=== PATIENT | female | born 1950 | race Caucasian/White ===

== ENCOUNTER 2023-07-23 10:11 | Outpatient (OUT) | payer MEDICARE, SELFPAY ==
--- NOTE | 2023-07-23 10:22 | US_ITS ---
[address] [address] Patient Name: CHARLIE JACKSON MRN: [id number] date: 1950 Sex: F Assigned Patient Location: Current Patient Location: US Accession/Order Number: [id number] Exam Date: 07/23/2023 10:23 Report Date: 07/23/2023 14:10 At the request of: ANSELMO HIGHTOWER Procedure: US carotid duplex BI EXAMINATION: US carotid duplex BI HISTORY: syncope and collapse R55 COMPARISON: No relevant comparison available. TECHNIQUE: Duplex Doppler ultrasound analysis of carotid and vertebral arteries. . Bilateral carotid arterial duplex examination was performed using B-mode, color flow and spectral analysis. Carotid stenosis is reported according to validated velocity parameters, similar to NASCET criteria. FINDINGS: RIGHT CAROTID ARTERY: Mild atherosclerotic disease without significant stenosis. RIGHT VERTEBRAL: Antegrade flow. Subclavian: PSV: 143.6 cm/s EDV: 8.2 cm/s CCA: Prox: PSV: 80.1 cm/s EDV: 12.0 cm/s Mid: PSV: 72.4 cm/s EDV: 15.3 cm/s Distal: PSV: 65.8 cm/s EDV: 15.3 cm/s BULB: PSV: 49.4 cm/s EDV: 9.8 cm/s ICA: Prox: PSV: 72.4 cm/s EDV: 15.3 cm/s Mid: PSV: 102.1 cm/s EDV: 28.3 cm/s Distal: PSV: 129.8 cm/s EDV: 32.3 cm/s ECA: PSV: 80.6 cm/s EDV: 0.0 cm/s VERTEBRAL: PSV: 54.7 cm/s EDV: 14.4 cm/s ICA/CCA ratio: PSV: 2.0 EDV: 2.1 LEFT CAROTID ARTERY: Mild atherosclerotic disease without significant stenosis. LEFT VERTEBRAL: Antegrade flow. Subclavian: PSV: 124.0 cm/s EDV: 0.0 cm/s CCA: Prox: PSV: 115.9 cm/s EDV: 20.7 cm/s Mid: PSV: 78.7 cm/s EDV: 9.1 cm/s Distal: PSV: 78.7 cm/s EDV: 13.7 cm/s BULB: PSV: 78.8 cm/s EDV: 15.4 cm/s ICA: Prox: PSV: 72.3 cm/s EDV: 20.6 cm/s Mid: PSV: 94.4 cm/s EDV: 21.5 cm/s Distal: PSV: 116.1 cm/s EDV: 25.4 cm/s ECA: PSV: 100.3 cm/s EDV: 7.7 cm/s VERTEBRAL: PSV: 88.5 cm/s EDV: 5.7 cm/s ICA/CCA ratio: PSV: 1.5 EDV: 1.9 US/US carotid duplex BI IMPRESSION: 1. Mild atherosclerotic disease bilaterally. 2. 0-49% flow stenosis within the right and left carotid arteries. Spectral Doppler US Thresholds Stenosis (%) PSV (cm/sec) VICA/VCCA 0-49 <150 <2.5 50-69 150-225 2.5-4.0 >70 >225 >4.0 Electronically authenticated by: YESSICA FREDERICK Date: 07/23/2023 14:10
== END 2023-07-23 10:12 | disposition home or self-care (01) ==
PROVIDERS: PCP Family Medicine; Visit Provider Family Medicine
DX: R55 Syncope and collapse (principal)
CPT/HCPCS: 93880

== ENCOUNTER 2023-08-18 09:24 | Outpatient (OUT) | payer MEDICARE, SELFPAY ==
--- OUTSIDE RECORDS SUMMARY | 2023-08-18 09:38 | XMS_ITS | CCD ---
Author Organization [facility] Care Team Providers Care Casting Cleaner Name Role Phone DR ANSELMO HIGHTOWER Admitting Unavailable DR ANSELMO HIGHTOWER Attending Unavailable DR ANSELMO HIGHTOWER Primary Care Unavailable DR ANSELMO HIGHTOWER Admitting Unavailable DR ANSELMO HIGHTOWER Attending Unavailable DR ANSELMO HIGHTOWER Primary Care Unavailable DR ANSELMO HIGHTOWER Consulting Unavailable DR AMADOU ALVA Consulting Unavailable Problems Problem Classification Problem Date Documented Date Episodic/Chronic Diabetes mellitus without complication (1 source) Type 2 diabetes mellitus without complications; Translations: [TYPE 2 DM WITHOUT COMPLICATIONS] Onset: 2 Chronic Diabetes mellitus without complication (1 source) Other abnormal glucose; Translations: [OTHER ABNORMAL GLUCOSE] Onset: 2 Episodic Disorders of lipid metabolism (4 sources) Pure hypercholesterolemia, unspecified; Translations: [PURE HYPERCHOLESTEROLEMIA UNSPEC] Onset: 2 Chronic Malaise and fatigue (1 source) Other fatigue; Translations: [OTHER FATIGUE] Onset: 2 Episodic Nutritional deficiencies (1 source) Vitamin D deficiency, unspecified; Translations: [VITAMIN D DEFICIENCY UNSPECIFIED] Onset: 2 Chronic Other screening for suspected conditions (not mental disorders or infectious disease) (2 sources) Encounter for screening for malignant neoplasm of rectum; Translations: [Encounter for screening mammogram for malignant neoplasm of breast] Onset: 2 Episodic Results Test Name Value Interpretation Reference Range Facil ity CBC AUTO DIFFon 04-29-2022 BASO # 0.0 103/ul Normal 0.0-0.1 [facility] Comment on above: Performed By: #### C BC #### [facility] [address] [address] [address] Ally Maria Basophils/100 WBC (Bld) 0.9 % Normal 0.2-2.0 [facility] Comment on above: Performed By: #### C BC #### [facility] [address] [address] [address] Ally Maria EO # 0.3 103/ul Normal 0.0-0.7 [facility] Comment on above: Performed By: #### C BC #### [facility] [address] [place] [address] Dr. Ally Maria Eosinophils/100 WBC (Bld) 5.8 % Normal 0.9-7.0 [facility] Comment on above: Performed By: #### C BC #### [facility] [address] [place] [address] Dr. Ally Maria Erythrocyte distribution width (RBC) [Ratio] 13.3 % Normal 11.0-15.0 [facility] Comment on above: Performed By: #### C BC #### [facility] [address] [place] [address] Dr. Ally Maria Hematocrit (Bld) [Volume fraction] 36.5 % Normal 36.0-48.0 [facility] Comment on above: Performed By: #### C BC #### [facility] [address] [place] [address] Dr. Ally Maria Hemoglobin (Bld) [Mass/Vol] 11.9 g/dL Critically low 12.0-16.0 [facility] Comment on above: Performed By: #### C BC #### [facility] [address] [place] [address] Dr. Ally Maria IG # 0.04 10e3/ul Critically high 0.00-0.03 [facility] Comment on above: Performed By: #### C BC #### [facility] [address] [place] [address] Dr. Ally Maria IG % 0.9 % Critically high 0.0-0.5 [facility] Comment on above: Performed By: #### C BC #### [facility] [address] [place] [address] Dr. Ally Maria LYMPH # 1.2 103/ul Normal 1.2-3.8 [facility] Comment on above: Performed By: #### C BC #### [facility] [address] [address] [address] Ally Maria Lymphocytes/100 WBC (Bld) 27.3 % Normal 20.5-60.0 [facility] Comment on above: Performed By: #### C BC #### [facility] [address] [place] [address] Dr. Ally Maria MANUAL DIFF REQ NO Normal [facility] Comment on above: Performed By: #### C BC #### [facility] [address] [address] [address] Ally Maria MCH (RBC) [Entitic mass] 26.6 pg Critically low 26.7-34.0 [facility] Comment on above: Performed By: #### C BC #### [facility] [address] [place] [address] Dr. Ally Maria MCHC (RBC) [Mass/Vol] 32.6 g/dL Normal 29.9-35.2 [facility] Comment on above: Performed By: #### C BC #### [facility] [address] [place] [address] Dr. Ally Maria MCV (RBC) [Entitic vol] 81.7 fL Normal 81.0-99.0 [facility] Comment on above: Performed By: #### C BC #### [facility] [address] [place] [address] Dr. Ally Maria MONO # 0.5 103/ul Normal 0.3-0.8 [facility] Comment on above: Performed By: #### C BC #### [facility] [address] [place] [address] Dr. Ally Maria Monocytes/100 WBC (Bld) 10.9 % Normal 1.7-12.0 [facility] Comment on above: Performed By: #### C BC #### [facility] [address] [place] [address] Dr. Ally Maria NEUT # 2.3 103/ul Normal 1.4-6.5 [facility] Comment on above: Performed By: #### C BC #### [facility] [address] [place] [address] Dr. Ally Maria Neutrophils/100 WBC (Bld) 54.2 % Normal 43.0-75.0 [facility] Comment on above: Performed By: #### C BC #### [facility] [address] [place] [address] Dr. Ally Maria Platelet mean volume (Bld) [Entitic vol] 9.0 fL Critically low 9.5-13.5 [facility] Comment on above: Performed By: #### C BC #### [facility] [address] [place] [address] Dr. Ally Maria PLT 210 103/ul Normal 150-450 [facility] Comment on above: Performed By: #### C BC #### [facility] [address] [place] [address] Dr. Ally Maria RBC 4.47 106/ul Normal 4.20-5.40 [facility] Comment on above: Performed By: #### C BC #### [facility] [address] [place] [address] Dr. Ally Maria WBC 4.3 103/ul Normal 4.0-11.0 [facility] Comment on above: Performed By: #### C BC #### [facility] [address] [place] [address] Dr. Ally Maria FREE T3on 04-29-2022 FREE T3 2.74 pg/mlL Normal 2.18-3.98 [facility] Comment on above: Performed By: #### C MP, T4, LIPID, FT3, TSH #### [facility] [address] [place] [address] Dr. Ally Maria GLYCOHEMOGLOBIN A1Con 2021 ADA RECOMMENDATION SEE BELOW Normal [facility] Comment on above: Result Comment: ADA RECOMMENDED LIMIT 4.0 - 6.0 ADA THERAPEUTIC TARGET < 7.0 ACTION SUGGESTED > 7.0 Performed By: #### A 1C #### [facility] [address] [place] [address] Dr. Ally Maria Glucose [Mass/Vol] 140 mg/dL Normal [facility] Comment on above: Performed By: #### A 1C #### [facility] [address] [address] [address] Ally Maria HbA1c (Bld) [Mass fraction] 6.5 % Critically high 4.5-6.2 [facility] Comment on above: Performed By: #### A 1C #### [facility] [address] [address] [address] Ally Maria LIPID PROFILEon 04-29-2022 CHOL-HDL RATIO NORM SEE BELOW Normal [facility] Comment on above: Result Comment: 3.3 - 4.4 LOW RISK 4.4 - 7.1 AVERAGE RISK 7.1 - 11.0 MODERATE RISK >11.0 HIGH RISK Performed By: #### C MP, T4, LIPID, FT3, TSH #### [facility] [address] [place] [address] Dr. Ally Maria Cholesterol [Mass/Vol] 161 mg/dL Normal <=200 [facility] Comment on above: Performed By: #### C MP, T4, LIPID, FT3, TSH #### [facility] [address] [place] [address] Dr. Ally Maria Cholesterol in HDL [Mass/Vol] 53 mg/dL Normal 40-60 [facility] Comment on above: Performed By: #### C MP, T4, LIPID, FT3, TSH #### [facility] [address] [address] [address] Ally Maria Cholesterol in LDL [Mass/Vol] 81.6 mg/dL Normal [facility] Comment on above: Performed By: #### C MP, T4, LIPID, FT3, TSH #### [facility] [address] [place] [address] Dr. Ally Maria Cholesterol.total/Cho lesterol in HDL [Mass ratio] 3.0 {ratio} Normal [facility] Comment on above: Performed By: #### C MP, T4, LIPID, FT3, TSH #### [facility] [address] [place] [address] Dr. Ally Maria HDL NORMAL > or = 60 mg/dl - LOW CARDIOVASCULAR RISK <40 mg/dl - HIGH CARDIOVASCULAR RISK Normal [facility] Comment on above: Performed By: #### C MP, T4, LIPID, FT3, TSH #### [facility] [address] [address] [address] Ally Maria LDL CALC NORMAL SEE BELOW Normal [facility] Comment on above: Result Comment: <100 mg/dl OPTIMAL 100 - 129 mg/dl NEAR OR ABOVE OPTIMAL 130 - 159 mg/dl BORDERLINE HIGH 160 - 189 mg/dl HIGH >190 mg/dl VERY HIGH Performed By: #### C MP, T4, LIPID, FT3, TSH #### [facility] [address] [address] [address] Ally Maria Triglyceride [Mass/Vol] 132 mg/dL Normal <=150 [facility] Comment on above: Performed By: #### C MP, T4, LIPID, FT3, TSH #### [facility] [address] [address] [address] Ally Maria VLDL CALC 26.4 mg/dL Normal [facility] Comment on above: Performed By: #### C MP, T4, LIPID, FT3, TSH #### [facility] [address] [address] [address] Ally Maria MG MAMM SCREEN 3D RENETTA CADon 04-29-2022 MG MAMM SCREEN 3D RENETTA CAD Patient: CHARLIE JACKSON Exam Date: 04/29/2022 : 1950 Gender:F Ordering : DR ANSELMO HIGHTOWER . Admission #: [id number] Family : Order #: [id number] CLICK HERE TO VIEW EXAM RADIOLOGY REPORT PROCEDURE: MAMMOGRAM SCREENING 3D BILATERAL CAD COMPARISON: MG MAMM SCREEN RENETTA W CAD, 05/09/2019. MG MAMM SCREEN RENETTA W CAD, 04/19/2018. INDICATIONS: Screening mammography Calculator Name NCI Breast Cancer Risk Assessment Tool 5 Year Breast Cancer Risk 1.40% Lifetime Breast Cancer Risk 3.40% Personal Breast Cancer No Personal Ovarian Cancer No Treatments None Family Cancers None LOCATION: [facility] BREAST COMPOSITION: Scattered areas fibroglandular density. FINDINGS: DIAGNOSTIC CATEGORY 2--BENIGN FINDING: RIGHT BREAST: No significant suspicious finding. Scattered benign-appearing nodules are present. No significant change has occurred. LEFT BREAST: No significant suspicious finding. Scattered benign-appearing nodules are present. No significant change has occurred. RECOMMENDATIONS: ROUTINE MAMMOGRAM AND CLINICAL EVALUATION IN 12 MONTHS. PLEASE NOTE: A NORMAL MAMMOGRAM DOES NOT EXCLUDE THE POSSIBILITY OF BREAST CANCER. A CLINICALLY SUSPICIOUS PALPABLE LUMP SHOULD BE BIOPSIED. Dictated by: Amadou Alva M.D. on 04/29/2022 at 12:24 Approved by: Amadou Alva M.D. on 04/29/2022 at 12:[address] [facility] PROF 14(COMP METB)on 04-29- 022 Albumin [Mass/Vol] 3.8 g/dL Normal 3.4-5.0 [facility] Comment on above: Performed By: #### C MP, T4, LIPID, FT3, TSH #### [facility] [address] [place] [address] Dr. Ally Maria Albumin/Globulin [Mass ratio] 1.2 {ratio} Normal [facility] Comment on above: Performed By: #### C MP, T4, LIPID, FT3, TSH #### [facility] [address] [place] [address] Dr. Ally Maria ALP [Catalytic activity/Vol] 51 U/L Normal 46-116 [facility] Comment on above: Performed By: #### C MP, T4, LIPID, FT3, TSH #### [facility] [address] [place] [address] Dr. Ally Maria ALT [Catalytic activity/Vol] 27 U/L Normal 14-59 [facility] Comment on above: Performed By: #### C MP, T4, LIPID, FT3, TSH #### [facility] [address] [place] [address] Dr. Ally Maria Anion gap [Moles/Vol] 11.9 mmol/L Normal [facility] Comment on above: Performed By: #### C MP, T4, LIPID, FT3, TSH #### [facility] [address] [place] [address] Dr. Ally Maria AST [Catalytic activity/Vol] 19 U/L Normal 15-37 [facility] Comment on above: Performed By: #### C MP, T4, LIPID, FT3, TSH #### [facility] [address] [place] [address] Dr. Ally Maria Bilirubin [Mass/Vol] 0.3 mg/dL Normal 0.2-1.0 [facility] Comment on above: Performed By: #### C MP, T4, LIPID, FT3, TSH #### [facility] [address] [place] [address] Dr. Ally Maria Calcium [Mass/Vol] 9.0 mg/dL Normal 8.5-10.1 [facility] Comment on above: Performed By: #### C MP, T4, LIPID, FT3, TSH #### [facility] [address] [place] [address] Dr. Ally Maria Chloride [Moles/Vol] 104 mmol/L Normal 98-107 [facility] Comment on above: Performed By: #### C MP, T4, LIPID, FT3, TSH #### [facility] [address] [place] [address] Dr. Ally Maria CO2 [Moles/Vol] 29.1 mmol/L Normal 21.0-32.0 [facility] Comment on above: Performed By: #### C MP, T4, LIPID, FT3, TSH #### [facility] [address] [place] [address] Dr. Ally Maria Creatinine [Mass/Vol] 0.59 mg/dL Normal 0.55-1.02 [facility] Comment on above: Performed By: #### C MP, T4, LIPID, FT3, TSH #### [facility] [address] [place] [address] Dr. Ally Maria EGFR-AF CUBAN >60 Normal >=60 [facility] Comment on above: Performed By: #### C MP, T4, LIPID, FT3, TSH #### [facility] [address] [place] [address] Dr. Ally Maria EGFR-NON AF CUBAN >60 Normal >=60 [facility] Comment on above: Performed By: #### C MP, T4, LIPID, FT3, TSH #### [facility] [address] [place] [address] Dr. Ally Maria Globulin (S) [Mass/Vol] 3.2 g/dL Normal [facility] Comment on above: Performed By: #### C MP, T4, LIPID, FT3, TSH #### [facility] [address] [place] [address] Dr. Ally Maria Glucose [Mass/Vol] 115 mg/dL Critically high 74-106 T [facility] Comment on above: Performed By: #### C MP, T4, LIPID, FT3, TSH #### [facility] [address] [place] [address] Dr. Ally Maria Potassium [Moles/Vol] 4.0 mmol/L Normal 3.5-5.1 [facility] Comment on above: Performed By: #### C MP, T4, LIPID, FT3, TSH #### [facility] [address] [place] [address] Dr. Ally Maria Protein [Mass/Vol] 7.0 g/dL Normal 6.4-8.2 [facility] Comment on above: Performed By: #### C MP, T4, LIPID, FT3, TSH #### [facility] [address] [place] [address] Dr. Ally Maria Sodium [Moles/Vol] 141 mmol/L Normal 136-145 [facility] Comment on above: Performed By: #### C MP, T4, LIPID, FT3, TSH #### [facility] [address] [place] [address] Dr. Ally Maria Urea nitrogen [Mass/Vol] 9.0 mg/dL Normal 7.0-18.0 [facility] Comment on above: Performed By: #### C MP, T4, LIPID, FT3, TSH #### [facility] [address] [place] [address] Dr. Ally Maria Urea nitrogen/Creatinine [Mass ratio] 15.3 mg/mg Normal [facility] Comment on above: Performed By: #### C MP, T4, LIPID, FT3, TSH #### [facility] [address] [place] [address] Dr. Ally Maria T4on 04-29-2022 T4 [Mass/Vol] 11.10 ug/dL Normal 4.80-13.90 [facility] Comment on above: Performed By: #### C MP, T4, LIPID, FT3, TSH #### [facility] [address] [place] [address] Dr. Ally Maria TSHon 04-29-2022 TSH 4.399 uIU/mL Critically high 0.358-3.740 [facility] Comment on above: Performed By: #### C MP, T4, LIPID, FT3, TSH #### [facility] [address] [address] [address] Ally Maria VITAMIN D 25 OHon 04-29-2022 VIT D 25-OH 29.5 ng/mL Normal [facility] Comment on above: Performed By: #### V ITAD #### [facility] [address] [place] [address] Dr. Ally Maria VIT D RANGES SEE BELOW Normal [facility] Comment on above: Result Comment: <20 ng/mL Vit D deficient 20 - <30 ng/mL Vit D insufficient 30 - 100 ng/mL Vit D sufficient >100 ng/mL Potential Toxicity Performed By: #### V ITAD #### [facility] [address] [place] [address] Dr. Ally Maria Coding Summary.on 11-16-2019 Coding Summary. CODING DATE: 11/16/2019 [facility] STATUS: Home (Routine DC) PAYOR: Medicare ADMIT DX: REASON FOR VISIT DX: Z01.84 Encounter for antibody response examination FINAL DX: PRINCIPAL: Z01.84 Encounter for antibody response examination SECONDARY: Z11.59 Encounter for screening for other viral diseases PYMT PROC APC STAT DESCRIPTION DOCTOR NAME DATE NOTE: The code number assigned matches the documented diagnosis and / or procedure in the patient's chart. However, the narrative phrase printed from the coding software may appear abbreviated, or result in slightly different terminology. Coded By: Hannah Griffiths Date Saved: 11/16/2019 07:38 pm Normal [facility] Physician Orderon 10-25-2019 Physician Order [id number] Normal [facility] Encounters Encounter Date Encounter Type Care Provider Facility Start: 05-21-2022 ambulatory ANSELMO PÉREZAmmy Facility :[facility] Start: 04-29-2022 End: 04-30-[address] ANSELMO HIGHTOWER Facility:[facility] Payers Date Payer Category Payer Self-pay [id number] 1961 Unknown [id number] 1950 Unknown [id number] 1950 Unknown [id number] Summary Purpose Family History No Family History Records FoundNo Family History Records Found Advance Directives No Advanced Directives Records FoundNo Advanced Directives Records Found Additional Source Comments INFORMATION SOURCE (unrecogn ized section and content) DATE CREATED AUTHOR 11/26/2019 [facility] DATE CREATED AUTHOR AUTHOR'S ORGANIZ ATION 05/21/2022 [facility] FOR RECORDS PERTAINING TO PATIENTS WHO ARE OR HAVE BEEN ENROLLED IN A CHEMICAL DEPENDENCY/SUBSTANCEABUSE PROGRAM, SOME INFORMATION MAY BE OMITTED. This clinical summary was aggregated from multiple sources. Caution should be exercised in using it in the provision of clinical care. This summary normalizes information from multiple sources, and as a consequence, information in this document may materially change the coding, format and clinical context of patient data. In addition, data may be omitted in some cases. CLINICAL DECISIONS SHOULD BE BASED ON THE PRIMARY CLINICAL RECORDS. [employer] provides no warranty or guarantee of the accuracy or completeness of information in this document.
[2023-08-18 10:05] LABS: Basophils Percent Auto 1.1 % (0.2-2.0); Eosinophils Absolute Auto 0.2 10^3/uL (0.0-0.7); Eosinophils Percent Auto 5.5 % (0.9-7.0); Hematocrit 39.3 % (36.0-48.0); Hemoglobin 12.4 g/dL (12.0-16.0); Immature Granulocytes Abs Auto 0.02 10^3/uL (0.00-0.03); Immature Granulocytes Pct Auto 0.5 % (0.0-0.5); Lymphocytes Percent Auto 26.8 % (20.5-60.0); Mean Corpuscular HGB Conc 31.6 g/dL (29.9-35.2); Mean Corpuscular Hemoglobin 26.3 pg (26.7-34.0); Mean Corpuscular Volume 83.3 fL (81.0-99.0); Monocytes Absolute Auto 0.3 10^3/uL (0.3-0.8); Monocytes Percent Auto 8.4 % (1.7-12.0); Neutrophils Absolute Auto 2.2 10^3/uL (1.4-6.5); Neutrophils Percent Auto 57.7 % (43.0-75.0); Platelet Count 224 10^3/uL (150-450); Red Blood Count 4.72 10^6/uL (4.20-5.40); Red Cell Distribution Width 13.1 % (11.0-15.0); White Blood Count 3.8 10^3/uL (4.0-11.0)
[2023-08-18 10:20] LABS: Estimated Average Glucose 131 mg/dL; Glycohemoglobin A1C 6.2 % (4.5-6.2)
[2023-08-18 11:13] LABS: Alanine Aminotransferase 18 U/L (14-59); Albumin Globulin Ratio 1.1; Albumin Level 3.9 g/dL (3.4-5.0); Alkaline Phosphatase 60 U/L (46-116); Anion Gap 13.1; Aspartate Amino Transferase 12 U/L (15-37); BUN Creatinine Ratio 14.9; Bilirubin Total 0.6 mg/dL (0.2-1.0); Calcium 9.4 mg/dL (8.5-10.1); Carbon Dioxide 29.6 mmol/L (21.0-32.0); Chloride 103 mmol/L (98-107); Chol HDL Ratio 3.3; Cholesterol 195 mg/dL (<=200); Estimated GFR (African America >60 (>=60); Estimated GFR (Non-African Ame >60 (>=60); Free T3 2.92 pg/mL (2.18-3.98); Globulin 3.4 g/dL; Glucose 119 mg/dL (74-106); HDL Cholesterol 59 mg/dL (40-60); Potassium 3.7 mmol/L (3.5-5.1); Sodium 142 mmol/L (136-145); Thyroid Stimulating Hormone 2.923 uIU/mL (0.358-3.740); Total Protein 7.3 g/dL (6.4-8.2); Triglycerides 152 mg/dL (<=150); VLDL CHOLESTEROL 30.4 mg/dL
== END 2023-08-18 09:25 | disposition home or self-care (01) ==
LOC: LAB 09:27
PROVIDERS: PCP Family Medicine; Visit Provider Family Medicine
DX: E78.5 Hyperlipidemia, unspecified (principal); E11.9 Type 2 diabetes mellitus without complications; H66.90 Otitis media, unspecified, unspecified ear; H65.90 Unspecified nonsuppurative otitis media, unspecified ear; Z12.12 Encounter for screening for malignant neoplasm of rectum; D64.9 Anemia, unspecified; E55.9 Vitamin D deficiency, unspecified
CPT/HCPCS: 36415; 80053; 80061; 82306; 83036; 83540; 84436; 84443; 84481; 85025

== ENCOUNTER 2024-09-27 08:40 | Outpatient (OUT) | payer MEDICARE, SELFPAY ==
--- OUTSIDE RECORDS SUMMARY | 2024-09-27 08:48 | XMS_ITS | CCD ---
Author Organization [facility] Care Team Providers Care Supervisor Dehydrogenation Name Role Phone DR ANSELMO STOVER Admitting Unavailable CAMPBELL, DR BRIONES Attending Unavailable CAMPBELL, DR BRIONES Primary Care Unavailable CAMPBELL, DR BRIONES Admitting Unavailable DR ANSELMO STOVER Attending Unavailable CAMPBELL, DR BRIONES Primary Care Unavailable CAMPBELL, DR BRIONES Consulting Unavailable OTONIEL, DR AMADOU Corey Consulting Unavailable MD Anselmo Stover Primary Care Provider [phone] MD Catrina Bernardo Jr Attending Provider Catrina Bullock Jr Attending Unavailable Catrina Bernardo Jr Admitting Unavailable Anselmo Stover Primary Care Unavailable Anselmo Stover MD Primary Care Provider [phone] Rica Lorenzo Unavailable [phone] RICA MCCORMACK Attending Unavailable ANSELMO STOVER Referring Unavailable CATRINA BERNARDO Attending Unavailable ANSELMO STOVER Referring Unavailable SWETHA DALE Attending Unavailable CATRINA BERNARDO Referring Unavailable SWETHA DALE Attending Unavailable CATRINA BERNARDO Attending Unavailable LAYLA RUTHERFORD Attending Unavailable Allergies Allergy Classification Reported Allergen(s) Allergy Type Date of Onset Reaction(s) Facility (1 source) Unable to Assess Drug allergy (disorder) 12-25-2023 [facility] Repository Medications Current Medications Medication Drug Class(es) Dates Sig (Normalized) Sig (Original) 24 hr metFORMIN hydrochloride 500 mg extended release oral tablet (9 sources) Biguanide Start: 11-09-2023 take 1 tablet by mouth every twenty-four hours at mealtime metFORMIN XR (Glucophage-XR) 500 MG 24 hr tablet Take 500 mg by mouth in the evening. Take with meals 11/09/2023 Active pioglitazone 15 mg oral tablet (10 sources) Peroxisome Proliferator Receptor alpha Agonist, Peroxisome Proliferator Receptor gamma Agonist, Thiazolidinedione Start: 08-11-2023 take 1 tablet by mouth once daily pioglitazone (Actos) 15 MG tablet Take 15 mg by mouth Daily 08/11/2023 Active simvastatin 20 mg oral tablet (10 sources) HMG-CoA Reductase Inhibitor Start: 08-11-2023 take 1 tablet by mouth once daily simvastatin (Zocor) 20 MG tablet Take 20 mg by mouth Daily 08/11/2023 Active Problems Active Problems Problem Classification Problem Date Documented Date Episodic/Chronic Diabetes mellitus without complication (11 sources) Type 2 diabetes mellitus without complications; Translations: [Type 2 diabetes mellitus] Onset: 05-07-2022 09-03-2023 Chronic Diabetes mellitus without complication (1 source) Other abnormal glucose; Translations: [OTHER ABNORMAL GLUCOSE] Onset: 05-07-2022 Episodic Disorders of lipid metabolism (14 sources) Pure hypercholesterolemia , unspecified; Translations: [Hypercholesterolemi a] Onset: 04-29-2022 Chronic Malaise and fatigue (1 source) Other fatigue; Translations: [OTHER FATIGUE] Onset: 05-07-2022 Episodic Nutritional deficiencies (1 source) Vitamin D deficiency, unspecified; Translations: [VITAMIN D DEFICIENCY UNSPECIFIED] Onset: 05-07-2022 Chronic Other circulatory disease (10 sources) Raynaud's phenomenon; Translations: [Raynaud's syndrome without gangrene] Onset: 09-03-2023 09-03-2023 Chronic Other ear and sense organ disorders (11 sources) Sensorineural hearing loss, unilateral, left ear, with unrestricted hearing on the contralateral side; Translations: [Sensorineural hearing loss, unilateral] Onset: 09-09-2023 09-09-2023 Chronic Other ear and sense organ disorders (10 sources) Asymmetrical sensorineural hearing loss; Translations: [Sensorineural hearing loss, bilateral] Onset: 09-03-2023 09-03-2023 Chronic Other ear and sense organ disorders (6 sources) Sensorineural hearing loss, bilateral; Translations: [Sensorineural hearing loss, bilateral] 02-17-2024 Chronic Other ear and sense organ disorders (2 sources) Sensorineural hearing loss, unilateral, right ear, with unrestricted hearing on the contralateral side; Translations: [Sensorineural hearing loss, unilateral] 12-30-2023 Chronic Other screening for suspected conditions (not mental disorders or infectious disease) (2 sources) Encounter for screening for malignant neoplasm of rectum; Translations: [Encounter for screening mammogram for malignant neoplasm of breast] Onset: 05-07-2022 Episodic Other upper respiratory disease (10 sources) Rhinitis; Translations: [Chronic rhinitis] Onset: 09-03-2023 09-03-2023 Chronic Past or Other Problems Problem Classification Problem Date Documented Date Episodic/Chronic Conditions associated with dizziness or vertigo (20 sources) Vertigo; Translations: [Dizziness and giddiness] Onset: 09-03-2023 09-03-2023 Episodic Other nervous system disorders (10 sources) Impairment of balance; Translations: [Other abnormalities of gait and mobility] Onset: 09-18-2023 09-18-2023 Episodic Otitis media and related conditions (10 sources) Serous otitis media; Translations: [Unspecified nonsuppurative otitis media, unspecified ear] Onset: 09-03-2023 09-03-2023 Episodic Spondylosis; intervertebral disc disorders; other back problems (10 sources) Neck pain; Translations: [Cervicalgia] Onset: 09-18-2023 09-18-2023 Episodic Results Test Name Value Interpretation Reference Range Facility ISTAT XRay CREon 12-25-2023 ISTAT GFR > 60.0 Normal [facility] Comment on above: Result Comment: PERF ORMED BY: [place] [address] PATHOLOGIST SKIVER OPERATOR JOSIAH CUEVA M.D. Performed By: #### I SCRE #### [address] MR head/brain wo/w conon MR head/brain wo/w con [facility] [place] [address] MRI Report Signed Patient: Charlie Jackson MR#: [id number] [birth year] : 1950 Acct:[id number] Age/Sex: 73 / F ADM Date: 12/25/23 Loc: MR Room: Type: [facility] Attending Dr: Catrina Bernardo Jr, MD Copies to: CATRINA BERNARDO MD Ordering Provider: CATRINA BERNARDO MD Date of Service: 12/25/23 MR/MR head/brain wo/w con: SENSORINEURAL HEARING LOSS LT HEAR W/UNRSTRICED RT MR head/brain wo/w con 12/25/2023 9:32 AM SIGN AND SYMPTOMS: Right-sided sensorineural hearing loss PROTOCOL: Multiplanar multisequence MR images of the brain were obtained with and without IV contrast CONTRAST: 14 mL intravenous ProHance COMPARISON: None. FINDINGS: Extra axial spaces: There is mild age-related cortical atrophy. Hemorrhage: None. Ventricular system: Within normal limits. Basal cisterns: Within normal limits and not effaced. Cerebral parenchyma: Periventricular and subcortical white matter T2 and FLAIR hyperintense foci are noted suggesting mild chronic microvascular ischemic change. Midline shift: None.. Cerebellum: Within normal limits. Brainstem: Within normal limits. Cerebellopontine angles: No mass or abnormal enhancement. Internal auditory canals: Vascular loops are present bilaterally raising the medial aspect of the ostium on the right and nearly to the apex on the left. This closely approximates the 7th and 8th cranial nerves. There is no mass or abnormal enhancement. Temporal bone structures: Within normal limits. OTHER: Calvarium: Normal marrow signal. Vascular system: Satisfactory flow voids within the anterior and posterior circulation. Visualized Paranasal sinuses: Within normal limits. Visualized Orbits: Within normal limits. Visualized upper cervical spine: Within normal limits. Sella and skull base: Within normal limits. MR/MR head/brain wo/w con IMPRESSION: Vascular loops are present bilaterally raising the medial aspect of the ostium on the right and nearly to the apex on the left. This closely approximates the 7th and 8th cranial nerves. Correlation with clinical signs of vascular nerve compression is recommended. There is no mass or abnormal enhancement. Mild chronic microvascular ischemic changes are noted as above. Impression dictated by: Gulshan Moore M.D.12/25/2023 3:09 PM Dictation Location: [place] [address] Transcribed By: RACHEL 12/25/23 1502 Dictated By: Gulshan Moore II, MD 12/25/23 150 Signed By: 12/25/23 1502 [facility] No Panel InformationOrdered By: CATRINA BERNARDO on 12-25-2023 Bedside Estimated GFR (eGFR) > 60.0 [facility] Whole blood creatinine measu rementOrdered By: CATRINA TOMLINJUDITH on 12-25-2023 Creatinine [Mass/Vol] 0.7 mg/dL Normal 0.6-1.3 [facility] Comment on above: ER/ESD physician is notified/shown all ISTAT results.Critical values may be confirmed by laboratory testing ifdeemed necessary by ER attending doctor. Result Comment: ER/E SD physician is notified/shown all ISTAT results. Critical values may be confirmed by laboratory testing if deemed necessary by ER attending doctor. Performed By: #### I SCRE #### [facility] [address] CBC AUTO DIFFon 04-29-2022 BASO # 0.0 103/ul Normal 0.0-0.1 [facility] Comment on above: Performed By: #### C BC #### [facility] [address] [place] [address] Dr. Ally Maria Basophils/100 WBC (Bld) 0.9 % Normal 0.2-2.0 [facility] Comment on above: Performed By: #### C BC #### [facility] [address] [place] [address] Dr. Ally Maria EO # 0.3 103/ul Normal 0.0-0.7 [facility] Comment on above: Performed By: #### C BC #### [facility] [address] [place] [address] Dr. Ally Maria Eosinophils/100 WBC (Bld) 5.8 % Normal 0.9-7.0 [facility] Comment on above: Performed By: #### C BC #### [facility] [address] [place] [address] Dr. Ally Maria Erythrocyte distribution width (RBC) [Ratio] 13.3 % Normal 11.0-15.0 [facility] Comment on above: Performed By: #### C BC #### [facility] [address] [place] [address] Dr. Ally Maria Hematocrit (Bld) [Volume fraction] 36.5 % Normal 36.0-48.0 [facility] Comment on above: Performed By: #### C BC #### [facility] [address] [place] [address] Dr. Ally Maria Hemoglobin (Bld) [Mass/Vol] 11.9 g/dL Critically low 12.0-16.0 [facility] Comment on above: Performed By: #### C BC #### [facility] [address] [place] [address] Dr. Ally Maria IG # 0.04 10e3/ul Critically high 0.00-0.03 [facility] Comment on above: Performed By: #### C BC #### [facility] [address] [place] [address] Dr. Ally Maria IG % 0.9 % Critically high 0.0-0.5 [facility] Comment on above: Performed By: #### C BC #### [facility] [address] [place] [address] Dr. Ally Maria LYMPH # 1.2 103/ul Normal 1.2-3.8 [facility] Comment on above: Performed By: #### C BC #### [facility] [address] [place] [address] Dr. Ally Maria Lymphocytes/100 WBC (Bld) 27.3 % Normal 20.5-60.0 [facility] Comment on above: Performed By: #### C BC #### [facility] [address] [place] [address] Dr. Ally Maria MANUAL DIFF REQ NO Normal [facility] Comment on above: Performed By: #### C BC #### [facility] [address] [place] [address] Dr. Ally Maria MCH (RBC) [Entitic mass] 26.6 pg Critically low 26.7-34.0 [facility] Comment on above: Performed By: #### C BC #### [facility] [address] [place] [address] Dr. Ally Maria MCHC (RBC) [Mass/Vol] 32.6 g/dL Normal 29.9-35.2 [facility] Comment on above: Performed By: #### C BC #### [facility] [address] [place] [address] Dr. Ally Maria MCV (RBC) [Entitic vol] 81.7 fL Normal 81.0-99.0 [facility] Comment on above: Performed By: #### C BC #### [facility] [address] [place] [address] Dr. Ally Maria MONO # 0.5 103/ul Normal 0.3-0.8 [facility] Comment on above: Performed By: #### C BC #### [facility] [address] [place] [address] Dr. Ally Maria Monocytes/100 WBC (Bld) 10.9 % Normal 1.7-12.0 [facility] Comment on above: Performed By: #### C BC #### [facility] [address] [place] [address] Dr. Ally Maria NEUT # 2.3 103/ul Normal 1.4-6.5 [facility] Comment on above: Performed By: #### C BC #### [facility] [address] [place] [address] Dr. Ally Maria Neutrophils/100 WBC (Bld) 54.2 % Normal 43.0-75.0 [facility] Comment on above: Performed By: #### C BC #### [facility] [address] [place] [address] Dr. Ally Maria Platelet mean volume (Bld) [Entitic vol] 9.0 fL Critically low 9.5-13.5 [facility] Comment on above: Performed By: #### C BC #### [facility] [address] [place] [address] Dr. Ally Maria PLT 210 103/ul Normal 150-450 [facility] Comment on above: Performed By: #### C BC #### [facility] [address] [place] [address] Dr. Ally Maria RBC 4.47 106/ul Normal 4.20-5.40 [facility] Comment on above: Performed By: #### C BC #### [facility] [address] [place] [address] [address] Ally Maria WBC 4.3 103/ul Normal 4.0-11.0 [facility] Comment on above: Performed By: #### C BC #### [facility] [address] [place] [address] [address] Ally Maria FREE T3on 04-29-2022 FREE T3 2.74 pg/mlL Normal 2.18-3.98 [facility] Comment on above: Performed By: #### C MP, T4, LIPID, FT3, TSH #### [facility] [address] [place] [address] [address] Ally Maria GLYCOHEMOGLOBIN A1Con 2021 ADA RECOMMENDATION SEE BELOW Normal [facility] Comment on above: Result Comment: ADA RECOMMENDED LIMIT 4.0 - 6.0 ADA THERAPEUTIC TARGET < 7.0 ACTION SUGGESTED > 7.0 Performed By: #### A 1C #### [facility] [address] [place] [address] Dr. Ally Maria Glucose [Mass/Vol] 140 mg/dL Normal [facility] Comment on above: Performed By: #### A 1C #### [facility] [address] [place] [address] [address] Ally Maria HbA1c (Bld) [Mass fraction] 6.5 % Critically high 4.5-6.2 [facility] Comment on above: Performed By: #### A 1C #### [facility] [address] [place] [address] Dr. Ally Maria LIPID PROFILEon 04-29-2022 CHOL-HDL RATIO NORM SEE BELOW Normal [facility] Comment on above: Result Comment: 3.3 - 4.4 LOW RISK 4.4 - 7.1 AVERAGE RISK 7.1 - 11.0 MODERATE RISK >11.0 HIGH RISK Performed By: #### C MP, T4, LIPID, FT3, TSH #### [facility] [address] [place] [address] [address] Ally Maria Cholesterol [Mass/Vol] 161 mg/dL Normal <=200 Th [facility] Comment on above: Performed By: #### C MP, T4, LIPID, FT3, TSH #### [facility] [address] [place] [address] Dr. Ally Maria Cholesterol in HDL [Mass/Vol] 53 mg/dL Normal 40-60 [facility] Comment on above: Performed By: #### C MP, T4, LIPID, FT3, TSH #### [facility] [address] [place] [address] Dr. Ally Maria Cholesterol in LDL [Mass/Vol] 81.6 mg/dL Normal [facility] Comment on above: Performed By: #### C MP, T4, LIPID, FT3, TSH #### [facility] [address] [place] [address] Dr. Ally Maria Cholesterol.total/Tonya sterol in HDL [Mass ratio] 3.0 {ratio} Normal [facility] Comment on above: Performed By: #### C MP, T4, LIPID, FT3, TSH #### [facility] [address] [place] [address] Dr. Ally Maria HDL NORMAL > or = 60 mg/dl - LOW CARDIOVASCULAR RISK <40 mg/dl - HIGH CARDIOVASCULAR RISK Normal [facility] Comment on above: Performed By: #### C MP, T4, LIPID, FT3, TSH #### [facility] [address] [place] [address] Dr. Ally Maria LDL CALC NORMAL SEE BELOW Normal [facility] Comment on above: Result Comment: <100 mg/dl OPTIMAL 100 - 129 mg/dl NEAR OR ABOVE OPTIMAL 130 - 159 mg/dl BORDERLINE HIGH 160 - 189 mg/dl HIGH >190 mg/dl VERY HIGH Performed By: #### C MP, T4, LIPID, FT3, TSH #### [facility] [address] [place] [address] Dr. Ally Maria Triglyceride [Mass/Vol] 132 mg/dL Normal <=[address] [facility] Comment on above: Performed By: #### C MP, T4, LIPID, FT3, TSH #### [facility] [address] [place] [address] Dr. Ally Maria VLDL CALC 26.4 mg/dL Normal [facility] Comment on above: Performed By: #### C MP, T4, LIPID, FT3, TSH #### [facility] [id number] Ally Maria MG MAMM SCREEN 3D RENETTA CADon 04-29-2022 MG MAMM SCREEN 3D RENETTA CAD Patient: CHARLIE JACKSON Exam Date: 04/29/2022 : 1950 Gender:F Ordering : DR ANSELMO STOVER . Admission #: [id number] Family : Order #: [id number] CLICK HERE TO VIEW EXAM RADIOLOGY REPORT [...] None Family Cancers None LOCATION: [facility] BREAST COMPOSITION: Scattered areas fibroglandular density. FINDINGS: [...] Alva M.D. on 04/29/2022 at 12:27 Normal [facility] PROF 14(COMP METB)on 022 Albumin [Mass/Vol] 3.8 g/dL Normal 3.4-5.0 [facility] Comment on above: Performed By: #### C MP, T4, LIPID, FT3, TSH #### [facility] [address] [place], [place] [address] Dr. Ally Maria Albumin/Globulin [Mass ratio] 1.2 {ratio} Normal [facility] Comment on above: Performed By: #### C MP, T4, LIPID, FT3, TSH #### [facility] [address] [place] [address] Dr. Ally Maria ALP [Catalytic activity/Vol] 51 U/L Normal 46-116 [facility] Comment on above: Performed By: #### C MP, T4, LIPID, FT3, TSH #### [facility] [address] [place] [address] Dr. Ally Maria ALT [Catalytic activity/Vol] 27 U/L Normal 14-59 [facility] Comment on above: Performed By: #### C MP, T4, LIPID, FT3, TSH #### [facility] [address] [place] [address] Dr. Ally Maria Anion gap [Moles/Vol] 11.9 mmol/L Normal [facility] Comment on above: Performed By: #### C MP, T4, LIPID, FT3, TSH #### [facility] [address] [place] [address] Dr. Ally Maria AST [Catalytic activity/Vol] 19 U/L Normal 15-37 [facility] Comment on above: Performed By: #### C MP, T4, LIPID, FT3, TSH #### [facility] [address] [place] [address] Dr. Ally Maria Bilirubin [Mass/Vol] 0.3 mg/dL Normal 0.2-1.0 [facility] Comment on above: Performed By: #### C MP, T4, LIPID, FT3, TSH #### [facility] [address] [place] [address] Dr. Ally Maria Calcium [Mass/Vol] 9.0 mg/dL Normal 8.5-10.1 [facility] Comment on above: Performed By: #### C MP, T4, LIPID, FT3, TSH #### [facility] [address] [place] [address] Dr. Ally Maria Chloride [Moles/Vol] 104 mmol/L Normal 98-107 [facility] Comment on above: Performed By: #### C MP, T4, LIPID, FT3, TSH #### [facility] [address] [place] [address] Dr. Ally Maria CO2 [Moles/Vol] 29.1 mmol/L Normal 21.0-32.0 [facility] Comment on above: Performed By: #### C MP, T4, LIPID, FT3, TSH #### [facility] [address] [place] [address] Dr. Ally Maria Creatinine [Mass/Vol] 0.59 mg/dL Normal 0.55-1.02 [facility] Comment on above: Performed By: #### C MP, T4, LIPID, FT3, TSH #### [facility] [address] [place] [address] Dr. lAly Maria EGFR-AF CITIZEN [place] >60 Normal >=60 [facility] Comment on above: Performed By: #### C MP, T4, LIPID, FT3, TSH #### [facility] [address] [place] [address] Dr. Ally Maria EGFR-NON AF CITIZEN OF [place] >60 Normal >=60 [facility] Comment on above: Performed By: #### C MP, T4, LIPID, FT3, TSH #### [facility] [address] [place] [address] Dr. Ally Maria Globulin (S) [Mass/Vol] 3.2 g/dL Normal [facility] Comment on above: Performed By: #### C MP, T4, LIPID, FT3, TSH #### [facility] [address] [place] [address] Dr. Ally Maria Glucose [Mass/Vol] 115 mg/dL Critically high 74-106 [facility] Comment on above: Performed By: #### C MP, T4, LIPID, FT3, TSH #### [facility] [address] [place] [address] Dr. Ally Maria Potassium [Moles/Vol] 4.0 mmol/L Normal 3.5-5.1 [facility] Comment on above: Performed By: #### C MP, T4, LIPID, FT3, TSH #### [facility] [address] [place] [address] Dr. Ally Maria Protein [Mass/Vol] 7.0 g/dL Normal 6.4-8.2 [facility] Comment on above: Performed By: #### C MP, T4, LIPID, FT3, TSH #### [facility] [address] [address] [address] Ally Maria Sodium [Moles/Vol] 141 mmol/L Normal 136-145 [facility] Comment on above: Performed By: #### C MP, T4, LIPID, FT3, TSH #### [facility] [address] [place] [address] Dr. Ally Maria Urea nitrogen [Mass/Vol] 9.0 mg/dL Normal 7.0-18.0 [facility] Comment on above: Performed By: #### C MP, T4, LIPID, FT3, TSH #### [facility] [address] [place] [address] Dr. Ally Maria Urea nitrogen/Creatinine [Mass ratio] 15.3 mg/mg Normal [facility] Comment on above: Performed By: #### C MP, T4, LIPID, FT3, TSH #### [facility] [address] [place] [address] Dr. Ally Maria T4on 04-29-2022 T4 [Mass/Vol] 11.10 ug/dL Normal 4.80-13.90 [facility] Comment on above: Performed By: #### C MP, T4, LIPID, FT3, TSH #### [facility] [address] [place] [address] Dr. Ally Maria TSHon 04-29-2022 TSH 4.399 uIU/mL Critically high 0.358-3.740 [facility] Comment on above: Performed By: #### C MP, T4, LIPID, FT3, TSH #### [facility] [address] [place] [address] Dr. Ally Maria VITAMIN D 25 OHon 04-29-2022 VIT D 25-OH 29.5 ng/mL Normal [facility] Comment on above: Performed By: #### V ITAD #### [facility] [address] [place], [place] [address] Dr. Ally Maria VIT D RANGES SEE BELOW Normal [facility] Comment on above: Result Comment: <20 ng/mL Vit D deficient 20 - <30 ng/mL Vit D insufficient 30 - 100 ng/mL Vit D sufficient >100 ng/mL Potential Toxicity Performed By: #### V ITAD #### [facility] [address] [address] [address] Ally Maria Coding Summary.on 11-16-2019 Coding Summary. CODING DATE: 11/16/2019 FINAL [facility] STATUS: Home (Routine DC) PAYOR: Medicare [...] Griffiths Date Saved: 11/16/2019 07:38 pm Normal [facility] Physician Orderon 10-25-2019 Physician Order [id number] Normal [facility] Vital Signs Date Time Vital Sign Value Performing Clinician [place] tsai 12-30-2023 11:17040 Body height 163.8 cm Catrina Bernardo MD Work Phone: [facility] 12-30-2023 11:17040 Body mass index (BMI) [Ratio] 27.72 kg/m2 Catrina Bernardo MD Work Phone: [facility] 12-30-2023 11:040 Body weight 74.39 kg Catrina Bernardo MD Work Phone: [facility] 12-30-2023 11:17040 Diastolic blood pressure 81 mm[Hg] Catrina Bernardo MD Work Phone: [facility] 12-30-2023 11:170400 Systolic blood pressure 165 mm[Hg] Catrina Bernardo MD Work Phone: [facility] 12-25-2023 06:40-0400 Body height 162.56 cm MD Anselmo Stover Work Phone: [facility] 12-25-2023 06:40-0400 Body weight 71.21 kg MD Anselmo Stover Work Phone: [facility] Encounters Encounter Date Encounter Type Care Provider Facility Start: 05-12-2024 End: 05-12-2024 Patient encounter procedure [facility] - Marianne Landaverde [facility] Comment on above: Sensorineural hearin g loss, bilateral (Primary Dx) Start: 05-12-2024 End: 05-12-2024 ambulatory RICA KAITLYN Not Available Start: 04-18-2024 End: 04-18-2024 Patient encounter procedure [facility] Marianne Landaverde [facility] Comment on above: Sensorineural hearin g loss, bilateral (Primary Dx) Start: 04-18-2024 End: 04-18-2024 ambulatory RICA KAITLYN Not Available Start: 02-17-2024 End: 02-17-2024 Bamboo flowsheet Layla Rutherford AUD Work Phone: [facility] Start: 02-17-2024 End: 02-17-2024 Bamboo flowsheet Layla Rutherford AUD Work Phone: [facility] Start: 02-17-2024 End: 02-17-2024 Patient encounter procedure Layla Rutherford AUD Work Phone: [facility] Comment on above: Sensorineural hearin g loss, bilateral (Primary Dx) Start: 02-17-2024 End: 02-17-2024 ambulatory LAYLA S RUTHERFORD Not Available Start: 12-30-2023 End: 12-30-2023 Bamboo flowsheet Catrina Bernardo MD Work Phone: [facility] Start: 12-30-2023 End: 12-30-2023 Bamboo flowsheet Catrina Bernardo MD Work Phone: [facility] Start: 12-30-2023 End: 12-30-2023 Office outpatient visit 15 minutes Catrina Bernardo MD Work Phone: [facility] Comment on above: Sensorineural hearin g loss (SNHL) of right ear with unrestricted hearing of left ear (Primary Dx) Start: 12-30-2023 End: 12-30-2023 ambulatory CATRINA BERNARDO Not Available Start: 12-25-2023 End: 12-25-2023 Patient encounter procedure MD Anselmo Stover Work Phone: [facility] Work Phone: Start: 12-25-2023 End: 12-25-2023 ambulatory MD Anselmo Stover Work Phone: [facility] Work Phone: Start: 09-24-2023 End: 09-24-2023 ambulatory SWETHA DALE Not Available Start: 09-18-2023 End: 09-18-2023 ambulatory SWETHA DALE Not Available Start: 09-09-2023 End: 09-09-2023 ambulatory CATRINA BERNARDO Not Available Start: 09-04-2023 End: 09-04-2023 ambulatory RICA MCCORMACK Not Available Start: 05-21-[address] ANSELMO STOVER Facility :[facility]1 Start: 04-29-2022 End: 04-30-[address] ANSELMO STOVER Facility:[facility] Procedures Date Procedure Procedure Detail Performing Clinician Start: 12-25-2023 MRI of head MD Anselmo Stover Work Phone: Plan of Treatment Date Care Activity Detail Author Start: 05-12-2024 End: 05-12-2024 Patient encounter procedure 05/12/2024 10:30 AM EST Office Visit [facility] [address] [facility] [place] [address] [facility] Start: 02-17-2024 End: 02-17-2024 Patient encounter procedure 02/17/2024 1:00 PM EDT Office Visit [facility] [address] [place] [phone] Layla Rutherford, AUD [address] [facility] [place] [address] Arrived [facility] Comment on above: Arrived Start: 01-10-2024 Influenza vaccination Influenza Vacc ine (#1) [facility] Start: 12-30-2023 End: 12-30-2023 Patient encounter procedure 12/30/2023 11:20 AM EDT Office Visit [facility] [address] [facility] [address] [place] [address] Catrina Bernardo MD [address] [facility] [address] [place], [place] [id number] Arrived [facility] Comment on above: Arrived Start: 2013 Pneumococcal Vaccine : 65+ Years (1 of 1 - PCV) Pneumococcal Vaccine: 65+ Years (1 of 1 - PCV) [facility] Start: 1950 Screening for malign ant neoplasm of colon [facility] Payers Date Payer Category Payer Self-pay 2023 Medicare ANTHEM MEDICARE ADVANTAGE ANTHEM MEDICARE ADVANTAGE [id number] 2023-Present [id number] 2023 Medicare (Managed Care) [facility] ADV[facility] Member Subscriber Plan / Payer (Effective 2023-Present) Name: Keara Charlie Relation to Subscriber: Self Name: Charlie Jackson Payer ID: Not on file Group ID: [id number] Type: Not on file Address: [address] [place] [id number] 1959 Self-pay [id number] 1959 Unknown [id number] 1950 Unknown [id number]. 2.593 1948 Unknown [id number] [id number]. 2.593 1948 Unknown [id number] 2.16.840.1.517870.3.579. 2.1259 1948 Unknown [id number] 2.16.840.1.004855.3.579. 2.125 1948 Unknown [id number] 2.16.840.1.925833.3.579. 2.125 1948 Unknown [id number] 2.16.840.1.912996.3.579. 2.125 1948 Unknown [id number] 2.16.840.1.008948.3.579. 2.1259 1948 Unknown [id number] 2.16.840.1.736210.3.579. 2.125 1948 Unknown [id number] 2.16.840.1.299900.3.579. 2.1259 1948 Unknown [id number] [id number]. 2.1259 [facility] 4ef [id number] Unknown [id number]. 2.531 Social History Date Type Detail Facility Tobacco smoking stat [facility] Unknown if ever smoked [facility] Work Phone: Start: 1950 Sex Assigned At Female F [facility] Start: 09-03-2023 [facility] Start: 09-03-2023 Tobacco use and exposure Smokeless tobacco non-user [facility] Start: 09-09-2023 End: 12-30-2023 Alcoholic beverage intake Ex-drinker (finding) [facility] Start: 09-09-2023 End: 12-30-2023 Alcoholic beverage intake [facility] Start: 09-09-2023 End: 12-30-2023 Tobacco use panel [facility] Start: 1950 Sex assigned at Not on file [facility] History of Present illness Narrative 05-12-2024 Marianne Landaverde MA - 05/12/2024 10:30 AM EST Note Date & Type Note Facility 05-12-2024 History of Presen t illness Narrative Patient was in today for a two week follow up on a new right hearing aid. Patient is very pleased. She states she is managing crowd noise much better. She was very pleased at her ability to hear when she gathered for [employer] with 30+ people. She did pair her aid to her phone herself. We reviewed basic features of the Myke and I taught her how to turn on and off streaming. Patient will continue as needed. Cosigned by JULIETH Hall at 05/13/2024 12:28 PM EST documented in this encounter [facility] History of Present illness Narrative 04-18-2024 Marianne Landaverde MA - 04/18/2024 10:30 AM EST Note Date & Type Note Facility 04-18-2024 History of Presen t illness Narrative Patient was in today to be fit with a eTect 513 LI T hearing aid for the right ear which she obtained using her [employer] benefit. 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 She was able to change the dome and filter. Patient understood rechargeability. Patient was able to insert and remove the aid with little difficulty. Patient liked the sound but felt it was too loud. I reduced to new user and patient felt it was much better. Patient aids were coupled to 2M fruit receiver with XS vented dome. Patient was not able to pair the aid to her phone as she did not know her apple ID. Patent feels her daughter will be able to pair the aid. I gave them a set of instructions. I scheduled a follow up appointment. Cosigned by JULIETH Hall at 04/19/2024 10:46 AM EST documented in this encounter [facility] History of Present illness Narrative 02-17-2024 CHARO Espinosa - 02/17/2024 1:00 PM EDT Note Date & Type Note Facility 02-17-2024 History of Presen t illness Narrative HAD: Patient has benefits through [employer] and is interested in exploring hearing aid options for her right ear. Discussed types and styles. Patient feels she would tolerate a SAMANTA hearing aid best. She would like to proceed with 1 [employer] Branded [address] LI T SAMANTA in granite (Signia 5IX) size 2M fruit receiver. Patient is aware of 30 day evaluation period completed by Padmini. Once aid is received, pt to be scheduled for HAF. $0 due from patient. documented in this encounter [facility] History of Present illness Narrative 12-30-2023 Catrina Bernardo MD - 12/30/2023 11:20 AM EDT Note Date & Type Note Facility 12-30-2023 History of Presen t illness Narrative Subjective Patient ID: Charlie Jackson is a 73 y.o. female who presents for Hearing Loss (Follow up MRI [facility] 12/24> [facility]) MRI reviewed and there is no AN, but there are renetta AICA loops Family History Problem Relation Name Age of Onset Diabetes Mother Gladine Alzheimer's disease Mother Gladine Stroke Father Andrew Hypertension Father Andrew Heart disease Father Andrew Migraines Father Andrew Active Ambulatory Problems Diagnosis Date Noted Asymmetrical sensorineural hearing loss 09/03/2023 Rhinitis 09/03/2023 Raynaud phenomenon 09/03/2023 Hypercholesterolemia ([facility] 09/03/2023 Type 2 diabetes mellitus ([facility]) 09/03/2023 Vertigo 09/03/2023 Otitis media, serous 09/03/2023 Sensorineural hearing loss (SNHL) of left ear with unrestricted hearing of right ear 09/09/2023 BPPV (benign paroxysmal positional vertigo), right 09/09/2023 Cervicalgia 09/18/2023 Balance disorder 09/18/2023 Resolved Ambulatory Problems Diagnosis Date Noted No Resolved Ambulatory Problems Past Medical History: Diagnosis Date Allergic rhinitis Dizziness 05/07/2023 HL (hearing loss) Several years ago Otitis media, chronic Shingles Tinnitus 2019 Past Surgical History: Procedure Laterality Date EYE SURGERY 2022 OOPHORECTOMY Bilateral No Known Allergies Current Outpatient Medications on File Prior to Visit Medication Sig Dispense Refill metFORMIN XR (Glucophage-XR) 500 MG 24 hr tablet Take 500 mg by mouth in the evening. Take with meals pioglitazone (Actos) 15 MG tablet Take 15 mg by mouth Daily simvastatin (Zocor) 20 MG tablet Take 20 mg by mouth Daily No current facility-administered medications on file prior to visit. Objective Last Recorded Vitals Vitals: 12/30/23 1117 BP: 165/81 ENT Physical Exam Constitutional Appearance: patient appears well-developed, well-nourished and well-groomed, Communication/Voice: communication appropriate for developmental age; vocal quality normal; Assessment/Plan Diagnoses and all orders for this visit: Sensorineural hearing loss (SNHL) of right ear with unrestricted hearing of left ear Pt reassured there is no AN. HL may be due to AICA loop, but there is no tx. Proceed with RT SOLIS documented in this encounter [facility] Evaluation note Note Date & Type Note Facility Evaluation note No assessment information [facility] Work Phone: Evaluation note Note Date & Type Note Facility Evaluation note Diagnosis Sensorineural hearing loss, bilateral- Primary documented in this encounter [facility] Evaluation note Note Date & Type Note Facility Evaluation note Diagnosis Sensorineural hearing loss, bilateral- Primary documented in this encounter [facility] Evaluation note Note Date & Type Note Facility Evaluation note Diagnosis Sensorineural hearing loss (SNHL) of right ear with unrestricted hearing of left ear- Primary documented in this encounter [facility] Summary Purpose Family History No Family History Records FoundNo Family History Records FoundNo Family History Records FoundNo Family History Records Found Advance Directives No Advanced Directives Records Found Advance Directive Response Recorded Date/ Time Advance Directives No November 30 1:07pm Chief Complaint and Reason for Visit Chief Complaint H90.42 Additional Source Comments INFORMATION SOURCE (unrecogn ized section and content) DATE CREATED AUTHOR 11/26/2019 [facility] DATE CREATED AUTHOR AUTHOR'S ORGANIZ ATION 05/21/2022 [facility] DATE CREATED AUTHOR AUTHOR'S ORGANIZ ATION 12/31/2023 [facility] DATE CREATED AUTHOR AUTHOR'S ORGANIZ ATION 05/14/2024 [facility] Care Teams (unrecognized sec tion and content) Team Status: Active Member Role Status Dates Anselmo Stover MD Primary Care Provider Active Team Status: Inactive Member Role Status Dates Anselmo Stover MD Primary Care Provider Active Start: December 25, 2023 End: December 25, 2023 Catrina Bernardo Jr, MD Attending Provider Active Start: December 25, 2023 End: December 25, 2023 Supervisor Dehydrogenation Relationship Specialty Start Date End Date Anselmo Stover MD [address] [place] [phone] PCP - General Family Medicine 07/24/23 Rica Mccormack [facility] [address] [place] [address] Audiology 09/04/23 Supervisor Dehydrogenation Relationship Specialty Start Date End Date Anselmo Stover MD [address] [place] [phone] PCP - General Family Medicine 07/24/23 Rica Mccormack [facility] [address] [place] [address] Audiology 09/04/23 Supervisor Dehydrogenation Relationship Specialty Start Date End Date Anselmo Stover MD [address] [place] [address] PCP - General Family Medicine 07/24/23 Rica Mccormack [facility] [address] [place] [address] Audiology 09/04/23 Supervisor Dehydrogenation Relationship Specialty Start Date End Date Anselmo Stover MD [address] [facility] [place] [phone] PCP - General Family [facility] 07/24/23 Rica Mccormack CCC-A [address] [place] [address] Audiology 09/04/23 Goals (unrecognized section and content) Goals may be documented in a n alternate section Reason for Visit (unrecogniz ed section and content) Reason Comments Hearing Loss Follow up MRI [facility] > [facility] FOR RECORDS PERTAINING TO PATIENTS WHO ARE [...] BE BASED ON THE PRIMARY CLINICAL RECORDS. [facility] [employer] [facility]. provides no warranty or guarantee of the accuracy or completeness of information in this document.
--- NOTE | 2024-09-27 09:07 | MM_ITS ---
Patient Name: CHARLIE JACKSON MR#: [id number] : 1950 Exam Date: 09/27/2024 Ordering Doctor: DR ANSELMO HIGHTOWER . RADIOLOGY REPORT PROCEDURE: MM TOMOSYNTHESIS SCREENING BI COMPARISON: MG MAMM SCREEN 3D RENETTA CAD, 04/29/2022. MG MAMM SCREEN RENETTA W CAD, 05/09/2019. MG MAMM SCREEN RENETTA W CAD, 04/19/2018. MG MAMM RENETTA SCRN W CAD DIG, 09/01/2013. INDICATIONS: Screening Calculator Name NCI Breast Cancer Risk Assessment Tool 5 Year Breast Cancer Risk 1.40% Lifetime Breast Cancer Risk 3.00% Personal Breast Cancer No Personal Ovarian Cancer No Treatments None Family Cancers None LOCATION: [facility] BREAST COMPOSITION: There are scattered areas of fibroglandular density. FINDINGS: RIGHT BREAST: No significant suspicious finding. Benign-appearing calcifications are present. Benign-appearing lymph nodes are noted along the chest wall. LEFT BREAST: No significant suspicious finding. Benign-appearing calcifications are present. Benign-appearing lymph nodes are chest wall. There are similar focal asymmetries. DIAGNOSTIC CATEGORY 2--BENIGN FINDING: RECOMMENDATIONS: ROUTINE MAMMOGRAM AND CLINICAL EVALUATION IN 12 MONTHS. PLEASE NOTE: A NORMAL MAMMOGRAM DOES NOT EXCLUDE THE POSSIBILITY OF BREAST CANCER. A CLINICALLY SUSPICIOUS PALPABLE LUMP SHOULD BE BIOPSIED. Dictated by: Gulshan Moore MD on 09/27/2024 at 13:48 Approved by: Gulshan Moore MD on 09/27/2024 at 13:51
[2024-09-27 09:21] LABS: Basophils Percent Auto 0.7 % (0.2-2.0); Eosinophils Absolute Auto 0.1 10^3/uL (0.0-0.7); Hematocrit 37.4 % (36.0-48.0); Hemoglobin 12.2 g/dL (12.0-16.0); Immature Granulocytes Abs Auto 0.07 10^3/uL (0.00-0.03); Immature Granulocytes Pct Auto 1.2 % (0.0-0.5); Lymphocytes Absolute Auto 1.4 10^3/uL (1.2-3.8); Lymphocytes Percent Auto 23.6 % (20.5-60.0); Mean Corpuscular HGB Conc 32.6 g/dL (29.9-35.2); Mean Corpuscular Hemoglobin 26.9 pg (26.7-34.0); Mean Corpuscular Volume 82.4 fL (81.0-99.0); Mean Platelet Volume 9.2 fL (9.5-13.5); Monocytes Absolute Auto 0.6 10^3/uL (0.3-0.8); Monocytes Percent Auto 10.3 % (1.7-12.0); Neutrophils Absolute Auto 3.7 10^3/uL (1.4-6.5); Neutrophils Percent Auto 63.2 % (43.0-75.0); Platelet Count 283 10^3/uL (150-450); Red Blood Count 4.54 10^6/uL (4.20-5.40); Red Cell Distribution Width 13.2 % (11.0-15.0); White Blood Count 5.9 10^3/uL (4.0-11.0)
[2024-09-27 09:33] LABS: Estimated Average Glucose 143 mg/dL; Glycohemoglobin A1C 6.6 % (4.5-6.2)
[2024-09-27 10:07] LABS: Alanine Aminotransferase 12 U/L (14-59); Albumin Globulin Ratio 1.3; Alkaline Phosphatase 69 U/L (46-116); Anion Gap 11.9; Aspartate Amino Transferase <5 U/L (15-37); BUN Creatinine Ratio 19.7; Bilirubin Total 0.5 mg/dL (0.2-1.0); Calcium 9.5 mg/dL (8.5-10.1); Carbon Dioxide 31.8 mmol/L (21.0-32.0); Chloride 102 mmol/L (98-107); Chol HDL Ratio 3.1; Cholesterol 185 mg/dL (<=200); Estimated GFR (African America >60 (>=60 mL/min/1.73m^2); Estimated GFR (Non-African Ame >60 (>=60 mL/min/1.73m^2); Free T3 3.08 pg/mL (2.18-3.98); Globulin 3.2 g/dL; Glucose 140 mg/dL (74-106); HDL Cholesterol 60 mg/dL (40-60); LDL Cholesterol Calculated 102.2 mg/dL; Potassium 3.7 mmol/L (3.5-5.1); Sodium 142 mmol/L (136-145); Thyroid Stimulating Hormone 3.384 uIU/mL (0.358-3.740); Total Protein 7.2 g/dL (6.4-8.2); Triglycerides 114 mg/dL (<=150); VLDL CHOLESTEROL 22.8 mg/dL
== END 2024-09-27 08:41 | disposition home or self-care (01) ==
LOC: MAMMO 08:45
PROVIDERS: PCP Family Medicine; Visit Provider Family Medicine
DX: E78.5 Hyperlipidemia, unspecified (principal); E11.36 Type 2 diabetes mellitus with diabetic cataract; E11.9 Type 2 diabetes mellitus without complications; J30.2 Other seasonal allergic rhinitis; I73.00 Raynaud's syndrome without gangrene; Z12.12 Encounter for screening for malignant neoplasm of rectum; D64.9 Anemia, unspecified
CPT/HCPCS: 36415; 77063; 77067; 80053; 80061; 83036; 83540; 84436; 84443; 84481; 85025